=== PATIENT | female | born 1940 | race Hispanic/Latino ===

== ENCOUNTER 2023-08-28 18:55 | Emergency (ER) | payer SELFPAY ==
[2023-08-28] MEDS ORDERED: Ondansetron PF 4 MG/2 ML Vial ONE (19:41)
[2023-08-28] MEDS ORDERED: fentaNYL 50 mcg/mL 1 mL Vial ONE (19:41)
[2023-08-28 19:42] LABS: #Basophils 0.1 thou/uL (0.0-0.2); #Eosinphils 0.1 thou/uL (0.0-0.7); #Monocytes 0.6 thou/uL (0.11-0.59); #Neutrophils 7.6 thou/uL (1.40-6.50); %Basophils 0.5 % (0.0-1.0); %Eosinophils 0.7 % (0.0-10.0); %Lymphocytes 12.4 % (21.0-51.0); %Monocytes 5.8 % (0.0-10.0); %Neutrophils 80.3 % (42.0-75.0); Hematocrit 32.8 % (36.0-47.0); Hemoglobin 11.2 g/dL (12.0-16.0); Mean Corpuscular HGB CONC 34.1 g/dL (32.0-36.0); Mean Corpuscular Hemoglobin 32.6 pg (27.0-31.0); Mean Corpuscular Volume 95.3 fl (78.0-98.0); Platelet Count 258 10x3/uL (130-400); Red Blood Cell (RBC) Count 3.44 mill/uL (4.20-5.40); White Blood Cell (WBC) Count 9.4 10x3/uL (4.8-10.8)
[2023-08-28 19:55] LABS: INR-International Normal Ratio 1.2; PTT 26.1 sec (22.9-36.1); Prothrombin Time 15.3 sec (12.0-14.7)
[2023-08-28 20:02] LABS: ALT (SGPT) 8 U/L (8-55); AST (SGOT) 15 U/L (5-34); Albumin 4.1 g/dL (3.4-4.8); Alkaline Phosphatase 76 U/L (40-110); Anion Gap 19 mmol/L (10-20); BUN (Urea Nitrogen) 100 mg/dL (9.8-20.1); Bilirubin, Total 0.2 mg/dL (0.2-1.2); Calc. Creatinine Clearance 0 mL/min (70-130); Calcium 8.9 mg/dL (7.8-10.44); Carbon Dioxide 11 mmol/L (23-31); Chloride 106 mmol/L (98-107); Estimated GFR 16; Globulin 3.6 g/dL (2.4-3.5); Glucose 158 mg/dL (83-110); Potassium 5.9 mmol/L (3.5-5.1); Protein, Total 7.7 g/dL (5.8-8.1); Sodium 130 mmol/L (136-145)
[2023-08-28] MEDS ORDERED: Dexamethasone 4 MG TAB ONE (21:32)
[2023-08-28 21:48] LABS: Bacteria/HPF 4+ HPF (None Seen); Bilirubin Negative (Negative); Blood, Urine 3+ (Negative); CAUTI Indications for Culture Pelvic or flank pain; Clarity Turbid (Clear); Glucose, Urine (Dipstick) Normal (Negative); Ketone, Urine Negative (Negative); Leukocyte 500 Leu/uL (Negative); Nitrite Negative (Negative); Protein, Urine (Dipstick) 50 mg/dL (Neg-Trace); RBC/HPF 21-50 HPF (0-3); Specific Gravity, Urine 1.011 (1.002-1.036); Squamous Epithelial 0-3 HPF (0-3); Urobilinogen Normal mg/dL (Less than 2); WBC/HPF Greater than 50 HPF (0-3); pH, Urine 5.5 (5.0-9.0)
[2023-08-28 21:50] LABS: Urine Culture Reflex Yes Yes
[2023-08-28] MEDS ORDERED: Sodium Chloride 0.9% 100 ML ONE (22:37)
[2023-08-28] MEDS ORDERED: cefTRIAXone (ROCEPHIN) 1 GM VIAL ONE (22:37)
[2023-08-29] MEDS ORDERED: Furosemide 40 MG (4 mL) VIAL ONE (00:51)
[2023-08-29] MEDS ORDERED: Albuterol 2.5 MG (3 mL) NEB ONE (01:03)
== END 2023-08-29 04:30 | disposition short-term general hospital (02) ==
LOC: ERS 18:55
DX: N19 Unspecified kidney failure (principal); I71.40 Abdominal aortic aneurysm, without rupture, unspecified; E87.5 Hyperkalemia; I71.20 Thoracic aortic aneurysm, without rupture, unspecified; N39.0 Urinary tract infection, site not specified; I10 Essential (primary) hypertension; I25.2 Old myocardial infarction; Z86.73 Personal history of transient ischemic attack (TIA), and cerebral infarction without residual deficits; Z55.6 Problems related to health literacy; Z79.899 Other long term (current) drug therapy
CPT/HCPCS: 51701; 71275; 72128; 72131; 74174; 80053; 81001; 83605; 85025; 85610; 85730; 87077; 87086; 87186; 93005; 94640; 96361; 96365; 96375; J0696; J1940; J2405; J3010; J3490; J7611; J8540